=== PATIENT | female | born 1935 | race Caucasian/White ===

== ENCOUNTER → 2021-03-28 | Outpatient (CLI) | payer MEDICARE, OTHER | LOC: MAMO 09:56 | DX: Z12.31 Encounter for screening mammogram for malignant neoplasm of breast (principal); Z85.3 Personal history of malignant neoplasm of breast; D51.8 Other vitamin B12 deficiency anemias; Z90.12 Acquired absence of left breast and nipple | CPT/HCPCS: 77063; 77067 ==